=== PATIENT | female | born 1985 | race Caucasian/White ===

== ENCOUNTER → 2021-11-06 15:49 | Outpatient (CLI) | payer OTHER, SELFPAY ==
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
== END ==
PROVIDERS: PCP Registered Nurse Diabetes Educator; Referring Provider Registered Nurse Diabetes Educator; Visit Provider Registered Nurse Diabetes Educator
DX: M54.2 Cervicalgia (principal)
CPT/HCPCS: 72040

== ENCOUNTER 2021-12-12 13:45 | Outpatient (RCR) | payer OTHER, SELFPAY ==
--- NOTE | 2021-11-21 18:45 | PT.OIE ---
Current Diagnoses Cervicalgia (11/21/21) Other specified disorders of bone, shoulder (11/21/21) Dizziness and giddiness (11/21/21) Past Medical History (Last Updated 11/18/21 @ 22:46 by Sowmya Boyle) Abnormal Pap smear of cervix (~2018) Genital HSV (~2017) Tendonitis (~2020) Tinnitus Past Surgical History (Last Updated 11/18/21 @ 22:46 by Sowmya Boyle) Anesthesia Lipoma of back (~06/04/18) Visit Care Team Role Provider Type BRENDAN Montalvo Family Provider Advanced Foamite Mixer Primary Care Provider Specialty: Medical Address: [address] [place] [address], [facility] Email: [email or web address] BRENDAN Giles Attending Provider Advanced Foamite Mixer Referring Provider Specialty: Family Practice Address: [address] [place] [address], [facility] Email: [email or web address] Physical Therapy Initial Evaluation PT-OP-A Visit Information Start: 11/18/21 18:11 Freq: Status: Active Protocol: Document 11/21/21 08:59 LRN (Rec: 11/21/21 09:56 LRN [id number]) Out-Patient Physical Therapy Visit Information Visit Information Visit Type Initial Evaluation Visit Note , $50 copay Visit Start Time 09:00 Visit Stop Time 09:55 Total Visit Minutes 55 Visit Number 1 Evaluation Information Evaluation Date 11/21/21 Precautions Precautions Hx or neck/back pain PT-OP-B Current Condition Start: 11/18/21 18:11 Freq: Status: Active Protocol: Document 11/21/21 08:59 LRN (Rec: 11/21/21 09:56 LRN [id number]) Current Condition History of Current Condition Onset Date Current Complaints Neck and shoulder discomfort. History of Current Condition Pt states she was referred for neck/shoulder pain that started after attending a concert in [place], but had slight neck pain previously. She currently has tightness behind the head and soreness in the neck and upper shoulders. She has had wrist tendonitis therapy ([facility] in [facility] ~02/12-06/15) previously, but she has ex's for that. Had went to a [employer] concert and was bashing her head around so for the first day or two when she stood up she would get dizzy and lightheaded, but that has cleared up. Neck/shoulder pain is essentially gone, just sore. Prior Treatments and Tests Medications for nighttime med for ms spasms and pain reliever. PT reports X-ray taken at , results unknown. X-rays reveal no acute findings or degenerative changes. Future Testing and Treatments Planned None Treatment Goals Patient/Caregiver Goals Pt goal is to get assessment self care program. Pain 1/10 in 4 weeks the night and morning after a strenuous day at work. Able to bend over and clean at work or weed whack carrying device at previous level of function. 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 Baseline Function- Other Currently can take care of self, but for first 1-2 days after the concert needed help with daily activities. Slight neck pain Current Functional Impairments (Reported) Functional Limitations- ADL's A lot lifting or bending. Functional Limitations- Work/School Back at work. Doing a lot of lifting or bending causes her more soreness, but not excruciating pain. 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 Therapy/Recovery PT-OP-C Subjective Start: 11/18/21 18:11 Freq: Status: Active Protocol: Document 11/21/21 08:59 LRN (Rec: 11/21/21 09:56 LRN [id number]) Patient Questionnaires Neck Disability Index NDI Score 7 Neck Disability Index Impairment 1 to 19% Impaired (Score 1-9) Quick Dash- Upper Extremity Quick Dash UE Score 29.54 Quick Dash UE Impairment 20 to 39% Impaired (Score 20- 39) OP-PT Pain Assessment Pain Assessment Grid Paper Pain Assessment Grid Completed Yes Location Neck Pain Location Details Paraspinals, UT, and above occiput Intensity 4 Scale Used Numeric (0 - 10) Description Aching,Shooting Description- Other Sharp if bending or moving the wrong way Pain Duration Intermittent sharp, Constant soreness Pain Aggravating Factors Activity Other Pain Aggravating Factors Lifting, bending Pain Alleviating Factors None PT-OP-D Balance Start: 11/18/21 18:11 Freq: Status: Active Protocol: Document 11/21/21 08:59 LRN (Rec: 11/21/21 09:56 LRN [id number]) OP-PT Balance Assessment Sitting Balance Static Sitting Balance Ability Normal Dynamic Sitting Balance Ability Normal Standing Balance Static Standing Balance Ability Normal Dynamic Standing Balance Ability Normal Heath Fall Scale Copyright Permission PT-OP-G Mobility & Gait Start: 11/18/21 18:11 Freq: Status: Active Protocol: Document 11/21/21 08:59 LRN (Rec: 11/21/21 09:56 LRN [id number]) OP Gait Assessment Comments Gait Comments Normal PT-OP-J Posture/Palpation/Skin Start: 11/18/21 18:11 Freq: Status: Active Protocol: Document 11/21/21 08:59 LRN (Rec: 11/21/21 09:56 LRN [id number]) Posture Evaluation Position Standing Head/C-Spine Posture Side Bent Left,Forward Head T-Spine Posture Increased Kyphosis L-Spine Posture Increased Lordosis Shoulder Posture (R) Elevated Hip Posture (L) Externally Rotated,(R) Externally Rotated Palpation Assessment Location Shoulder Palpation Location Intrascapular muscles Palpation Findings Soft Tissue Tightness,Muscle Guarding,Tenderness Palpation Details Upwardly rotated R scapula Ms tension of intrascapular muscles and weakness of the L intrascapular muscles. Neck Palpation Location R Upper trapezious Palpation Findings Soft Tissue Tightness, Tenderness Palpation Details R UT tight, but head tilted left L suboccipital region tight. PT-OP-K Range of Motion Start: 11/18/21 18:11 Freq: Status: Active Protocol: Document 11/21/21 08:59 LRN (Rec: 11/21/21 09:56 LRN [id number]) Cervical Spine Range of Motion Cervical Spine Active Degrees Testing Position Sitting Flexion 48 Extension 45 Rotation Left 30 Rotation Right 63 Lateral Flexion Left 30 Lateral Flexion Right 35 ROM Limitations Soft Tissue Tightness,Pain Comments Use of bubble inclinometer. Pt reports soreness vs pain restricting movement. L rot limited by L UT & L [place] tightness R rot tightness at LO intrascapular ms Shoulder Goniometric Range of Motion Shoulder Right Passive Shoulder ROM WFL Yes Testing Position Sitting Flexion 180 Abduction 177 External Rotation at 0 degrees Abduction 85 Internal Rotation Behind Back (text) T6 Comments IR limited due to R wrist pain . Left Active Shoulder ROM WFL Yes Testing Position Sitting Flexion 180 External Rotation at 0 degrees Abduction 85 Internal Rotation Behind Back (text) T5 PT-OP-L Special Tests Start: 11/18/21 18:11 Freq: Status: Active Protocol: Document 11/21/21 08:59 LRN (Rec: 11/21/21 09:56 LR [id number]) Special Tests Cervical Spine Special Tests Upper Limb Tension Test Test Results negative Vertebral Artery Test Results Neg bilaterally Comments Causes sharp pain R neck with R rot; tension of ms with L rot Spurling's Test Test Results + left Comments pain on left neck testing L SB , pressure on left with testing R SB. Traction Test Results Positive Comments decrease soreness Foraminal Compression Test Results negative Comments decrease soreness PT-OP-M Strength Start: 11/23/21 09:08 Freq: Status: Active Protocol: Document 11/21/21 08:59 LRN (Rec: 11/23/21 09:10 LRN [id number]) Cervical Spine Strength Cervical Spine Manual Muscle Testing Testing Position Sitting Rotation Right 4 Good Comments Generally 5/5 except as noted above. Shoulder Strength Shoulder Manual Muscle Testing Right Comments Generally 5/5 Left Comments Generally 5/5 PT-OP-Q Treatments Start: 11/18/21 18:11 Freq: Status: Active Protocol: Document 11/21/21 08:59 LRN (Rec: 11/21/21 09:56 LR [id number]) Therapeutic Exercises Supine Exercises C. PROM Supine Exercise Name C. PROM rot Side bilateral Reps/Minutes 3' Sitting Exercises Shoulder rolls Sitting Exercise Name Shoulder rolls with emphasis on shoulder depression and forward roll. Side bilateral Reps/Minutes 2' C. AROM Sitting Exercise Name C. AROM stretch: rotation Side bilateral Reps/Minutes 3' Self-Care/Home Management Treatment Education Other Education Discussed results of evaluation, goals, and plan of care (POC). Pt agreeable to goals and POC. Activities Self-Care/Home Management Activities HEP: Shoulder rolls, C. rot AROM stretch PT-OP-T Assessment and Plan Start: 11/18/21 18:11 Freq: Status: Active Protocol: Document 11/21/21 08:59 LRN (Rec: 11/21/21 09:56 LR [id number]) Physical Therapy Assessment Rehab Potential Rehabilitation Potential Good Evaluation Complexity Number of Personal Factors/Comorbidities 1-2 Number of Body Systems Impaired 4 or More Clinical Presentation at Evaluation Evolving Impairments Impairments Activity Tolerance,Pain,ROM, Soft Tissue Mobility,Strength Goals Three Impairment Decreased function due to pain Short Term Goal (STG) Pt will be educated in proper body mechanics and intermittent neck stretches during strenuous activities. STG Duration 12/06/09 Longterm Goal (LTG) Able to bend over and clean at work, or able to carry weed whack device at previous level of function. LTG Duration 01/17/22 Two Impairment Neck/mariann shoulder pain rated 3 -4/10 Short Term Goal (STG) Decrease pain to 2/10 STG Duration 01/17/22 Longterm Goal (LTG) Pain 1/10 in the night and morning after a strenuous day at work. LTG Duration 12/20/21 One Impairment Lacks appropriate self care HEP Short Term Goal (STG) Pt educated in self care use of modalities for pain relief (MH/Cryotherapy) STG Duration 11/29/09 Hearing Therapy Teacher Goal (LTG) Pt independent with a self care HEP for the neck/ shoulders. LTG Duration 02/19/22 Assessment Summary Assessment Pt presents mechanical dyfunction of the lower cervical spine, possible neural involvement as noted with +cervical traction test; and excessive mobility at the OA joint. She has increased ms tension of the R UT and intrascapular muscles and weakness of the L intrascapular muscles. The pt also demonstrates postural changes in the neck and shoulders (most notable is foward head and L forward rounded shoulder). The pt no longer is having symptoms of dizziness; therefore focus of therapy will be on improving cervical mobility and stabilization to decrease pain and return pt to prior level of function. Physical Therapy Plan Frequency and Duration Frequency of Treatment 2x/Week Plan of Care Start Date 11/21/21 Plan of Care End Date 02/19/22 Therapeutic Interventions Therapeutic Interventions Home Exercise Program,Joint Mobilizations,Manual Therapy, Neuromuscular Re-education, Patient/Caregiver Education, Self-Care/Home Management,Soft Tissue Mobilization,Taping, Therapeutic Activities, Therapeutic Exercises Modalities Cold Pack/Ice Massage,Electric Stimulation,Hot Packs, Ultrasound Next Visit Focus/Plan Next Note Type Treatment Note Next Visit Plan Pt choosing to focus on self care HEP. Independent with initial neck/shoulder ROM and strengthening 2x/1 wk, then follow up visits 1x/week until goals met. Educate pt in self care use of modalities & proper body mechanics w/Cervical shoulder ex (stretch, active ROM) during strenuous activities at work. HEP: Cervical & scapular stabilization, core strengthening. Manual: STM UT, C/S, JMT C/S & C. ROM with
--- NOTE | 2021-11-21 18:45 | PT.OPPOC ---
Physical, Occupational & Speech Therapy At [facility] Current Diagnoses Cervicalgia (11/21/21) Other specified disorders of bone, shoulder (11/21/21) Dizziness and giddiness (11/21/21) Visit Care Team Role Provider Type BRENDAN Montalvo Family Provider Advanced Carton Liner Primary Care Provider Specialty: Medical Address: [address] [place] [address], [id number] Email: [email or web address] BRENDAN Giles Attending Provider Advanced Carton Liner Referring Provider Specialty: [facility] Practice Address: [address] [place] [address], [id number] Email: [email or web address] Plan Of Care PT-OP-T Assessment and Plan Start: 11/18/21 18:11 Freq: Status: Active Protocol: Document 11/21/21 08:59 LRN (Rec: 11/21/21 09:56 LRN [id number]) Physical Therapy Assessment Rehab Potential Rehabilitation Potential Good Evaluation Complexity Number of Personal Factors/Comorbidities 1-2 Number of Body Systems Impaired 4 or More Clinical Presentation at Evaluation Evolving Impairments Impairments Activity Tolerance,Pain,ROM, Soft Tissue Mobility,Strength Goals Three Impairment Decreased function due to pain Short Term Goal (STG) Pt will be educated in proper body mechanics and intermittent neck stretches during strenuous activities. STG Duration 12/06/09 Service Dispatcher Goal (LTG) Able to bend over and clean at work, or able to carry weed whack device at previous level of function. LTG Duration 01/17/22 Two Impairment Neck/mariann shoulder pain rated 3 -4/10 Short Term Goal (STG) Decrease pain to 2/10 STG Duration 01/17/22 Correction Goal (LTG) Pain 1/10 in the night and morning after a strenuous day at work. LTG Duration 12/20/21 One Impairment Lacks appropriate self care HEP Short Term Goal (STG) Pt educated in self care use of modalities for pain relief (MH/Cryotherapy) STG Duration 11/29/09 Service Dispatcher Goal (LTG) Pt independent with a self care HEP for the neck/ shoulders. LTG Duration 02/19/22 Assessment Summary Assessment Pt presents mechanical dyfunction of the lower cervical spine, possible neural involvement as noted with +cervical traction test; and excessive mobility at the OA joint. She has increased ms tension of the R UT and intrascapular muscles and weakness of the L intrascapular muscles. The pt also demonstrates postural changes in the neck and shoulders (most notable is foward head and L forward rounded shoulder). The pt no longer is having symptoms of dizziness; therefore focus of therapy will be on improving cervical mobility and stabilization to decrease pain and return pt to prior level of function. Physical Therapy Plan Frequency and Duration Frequency of Treatment 2x/Week Plan of Care Start Date 11/21/21 Plan of Care End Date 02/19/22 Therapeutic Interventions Therapeutic Interventions Home Exercise Program,Joint Mobilizations,Manual Therapy, Neuromuscular Re-education, Patient/Caregiver Education, Self-Care/Home Management,Soft Tissue Mobilization,Taping, Therapeutic Activities, Therapeutic Exercises Modalities Cold Pack/Ice Massage,Electric Stimulation,Hot Packs, Ultrasound Next Visit Focus/Plan Next Note Type Treatment Note Next Visit Plan Pt choosing to focus on self care HEP. Independent with initial neck/shoulder ROM and strengthening 2x/1 wk, then follow up visits 1x/week until goals met. Educate pt in self care use of modalities & proper body mechanics w/Cervical shoulder ex (stretch, active ROM) during strenuous activities at work. HEP: Cervical & scapular stabilization, core strengthening. Manual: STM UT, C/S, JMT C/S & C. ROM with Plan of Care Dates Plan of Care Start Date 11/21/21 Plan of Care End Date 02/19/22 Electronically Signed by: Mary Albarran, PT 11/23/21 0914 If you are in agreement with this Plan of Care, please return a signed and dated copy. I have reviewed this Plan of Care and certify that the skilled therapy services above are required to meet the patient?s needs. Physician Signature Date Printed Name and Credentials Clinical Instructor Signature Printed Name and Credentials
--- NOTE | 2021-11-28 10:59 | PT.OTN ---
Current Diagnoses Cervicalgia (11/28/21) Other specified disorders of bone, shoulder (11/28/21) Dizziness and giddiness (11/28/21) Physical Therapy Treatment Note PT-OP-A Visit Information Start: 11/18/21 18:11 Freq: Status: Active Protocol: Document 11/28/21 09:05 LRN (Rec: 11/28/21 10:35 LRN [id number]) Out-Patient Physical Therapy Visit Information Visit Information Visit Type Treatment Note Visit Note , $50 copay Visit Start Time 09:05 Visit Stop Time 09:45 Total Visit Minutes 41 Visit Number 2 Evaluation Information Evaluation Date 11/21/21 Precautions Precautions Hx or neck/back pain PT-OP-B Current Condition Start: 11/18/21 18:11 Freq: Status: Active Protocol: Document 11/21/21 08:59 LRN (Rec: 11/21/21 09:56 LRN [id number]) Current Condition History of Current Condition Onset Date Current Complaints Neck and shoulder discomfort. History of Current Condition Pt states she was referred for neck/shoulder pain that started after attending a concert in [place], but had slight neck pain previously. She currently has tightness behind the head and soreness in the neck and upper shoulders. She has had wrist tendonitis therapy ([facility] in [place], ~02/12-06/15) previously, but she has ex's for that. Had went to a [employer] concert and was bashing her head around so for the first day or two when she stood up she would get dizzy and lightheaded, but that has cleared up. Neck/shoulder pain is essentially gone, just sore. Prior Treatments and Tests Medications for nighttime med for ms spasms and pain reliever. PT reports X-ray taken at , results unknown. X-rays reveal no acute findings or degenerative changes. Future Testing and Treatments Planned None Treatment Goals Patient/Caregiver Goals Pt goal is to get assessment self care program. Pain 1/10 in 4 weeks the night and morning after a strenuous day at work. Able to bend over and clean at work or weed whack carrying device at previous level of function. 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 Baseline Function- Other Currently can take care of self, but for first 1-2 days after the concert needed help with daily activities. Slight neck pain Current Functional Impairments (Reported) Functional Limitations- ADL's A lot lifting or bending. Functional Limitations- Work/School Back at work. Doing a lot of lifting or bending causes her more soreness, but not excruciating pain. 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 Therapy/Recovery PT-OP-C Subjective Start: 11/18/21 18:11 Freq: Status: Active Protocol: Document 11/28/21 09:05 LRN (Rec: 11/28/21 10:35 LRN [id number]) OP-PT Subjective Patient Comments Patient Comments NO excuciting pain anymore, still sore, limited neck mobility. PT-OP-D Balance Start: 11/18/21 18:11 Freq: Status: Active Protocol: Document 11/21/21 08:59 LRN (Rec: 11/21/21 09:56 LRN [id number]) OP-PT Balance Assessment Sitting Balance Static Sitting Balance Ability Normal Dynamic Sitting Balance Ability Normal Standing Balance Static Standing Balance Ability Normal Dynamic Standing Balance Ability Normal Heath Fall Scale Copyright Permission PT-OP-G Mobility & Gait Start: 11/18/21 18:11 Freq: Status: Active Protocol: Document 11/21/21 08:59 LRN (Rec: 11/21/21 09:56 LRN [id number]) OP Gait Assessment Comments Gait Comments Normal PT-OP-J Posture/Palpation/Skin Start: 11/18/21 18:11 Freq: Status: Active Protocol: Document 11/21/21 08:59 LRN (Rec: 11/21/21 09:56 LRN [id number]) Posture Evaluation Position Standing Head/C-Spine Posture Side Bent Left,Forward Head T-Spine Posture Increased Kyphosis L-Spine Posture Increased Lordosis Shoulder Posture (R) Elevated Hip Posture (L) Externally Rotated,(R) Externally Rotated Palpation Assessment Location Shoulder Palpation Location Intrascapular muscles Palpation Findings Soft Tissue Tightness,Muscle Guarding,Tenderness Palpation Details Upwardly rotated R scapula Ms tension of intrascapular muscles and weakness of the L intrascapular muscles. Neck Palpation Location R Upper trapezious Palpation Findings Soft Tissue Tightness, Tenderness Palpation Details R UT tight, but head tilted left L suboccipital region tight. PT-OP-K Range of Motion Start: 11/18/21 18:11 Freq: Status: Active Protocol: Document 11/21/21 08:59 LRN (Rec: 11/21/21 09:56 LRN [id number]) Cervical Spine Range of Motion Cervical Spine Active Degrees Testing Position Sitting Flexion 48 Extension 45 Rotation Left 30 Rotation Right 63 Lateral Flexion Left 30 Lateral Flexion Right 35 ROM Limitations Soft Tissue Tightness,Pain Comments Use of bubble inclinometer. Pt reports soreness vs pain restricting movement. L rot limited by L UT & L Scalene tightness R rot tightness at LO intrascapular ms Shoulder Goniometric Range of Motion Shoulder Right Passive Shoulder ROM WFL Yes Testing Position Sitting Flexion 180 Abduction 177 External Rotation at 0 degrees Abduction 85 Internal Rotation Behind Back (text) T6 Comments IR limited due to R wrist pain . Left Active Shoulder ROM WFL Yes Testing Position Sitting Flexion 180 External Rotation at 0 degrees Abduction 85 Internal Rotation Behind Back (text) T5 PT-OP-L Special Tests Start: 11/18/21 18:11 Freq: Status: Active Protocol: Document 11/21/21 08:59 LRN (Rec: 11/21/21 09:56 LRN [id number]) Special Tests Cervical Spine Special Tests Upper Limb Tension Test Test Results negative Vertebral Artery Test Results Neg bilaterally Comments Causes sharp pain R neck with R rot; tension of ms with L rot Spurling's Test Test Results + left Comments pain on left neck testing L SB , pressure on left with testing R SB. Traction Test Results Positive Comments decrease soreness Foraminal Compression Test Results negative Comments decrease soreness PT-OP-M Strength Start: 11/23/21 09:08 Freq: Status: Active Protocol: Document 11/21/21 08:59 LRN (Rec: 11/23/21 09:10 LRN [id number]) Cervical Spine Strength Cervical Spine Manual Muscle Testing Testing Position Sitting Rotation Right 4 Good Comments Generally 5/5 except as noted above. Shoulder Strength Shoulder Manual Muscle Testing Right Comments Generally 5/5 Left Comments Generally 5/5 PT-OP-Q Treatments Start: 11/18/21 18:11 Freq: Status: Active Protocol: Document 11/28/21 09:05 LRN (Rec: 11/28/21 10:35 LRN [id number]) Therapeutic Exercises Supine Exercises Horiz AB/AD arms Supine Exercise Name Horiz AB/AD Side bilateral Reps/Minutes 15x Comments Extra time to for slow and controlled motions with cuing given. Alternating arm lifts Supine Exercise Name Alternating arm lifts Side bilateral Reps/Minutes 15x Comments Extra time to for slow and controlled motions with cuing given. Neck Elongation Supine Exercise Name Turtle stretch Reps/Minutes 10 SH x 10 C. PROM Supine Exercise Name C. PROM rot Side bilateral Sitting Exercises C. Isometrics Sitting Exercise Name Vonnie c. flex, ext, SB. Reps/Minutes 10SH x 5 each, alternating side to side Comments Cuing needed for neutral spine /head positioning with ex. C. AROM Sitting Exercise Name C. AROM stretch: rotation Side bilateral Reps/Minutes 3' Manual Therapy Treatment Soft Tissue Mobilization NEck Body Location Posterior neck, anterior scalenes. Mobilization Type Cross-Friction,Strumming, Sustained Pressure Intensity/Depth Moderate Body Position Prone & supine Joint Mobilizations C2 Joint Correcting a L rot Body Position Prone Comments MFR and balancing technique Self-Care/Home Management Treatment Education Patient Education Home Exercise Program Other Education Brief education of head/neck posture with body mechanics. Recommended pt switch arms with scrubbing of toilets and keeping chin tucked. Activities Self-Care/Home Management Activities Issue & reviewed HEP: C. Isometrics (flex, ext, SB). Pt to start with 10SH x 5(2 sets) alternating, and working up to 10SH x 10 each side at a time. PT-OP-T Assessment and Plan Start: 11/18/21 18:11 Freq: Status: Active Protocol: Document 11/28/21 09:05 LRN (Rec: 11/28/21 10:35 LRN [id number]) Physical Therapy Assessment Goals Three Impairment Decreased function due to pain Short Term Goal (STG) Pt will be educated in proper body mechanics and intermittent neck stretches during strenuous activities. STG Duration 12/06/09 Nursing Home Goal (LTG) Able to bend over and clean at work, or able to carry weed whack device at previous level of function. LTG Duration 01/17/22 Two Impairment Neck/mariann shoulder pain rated 3 -4/10 Short Term Goal (STG) Decrease pain to 2/10 STG Duration 01/17/22 Nursing Home Goal (LTG) Pain 1/10 in the night and morning after a strenuous day at work. LTG Duration 12/20/21 One Impairment Lacks appropriate self care HEP Short Term Goal (STG) Pt educated in self care use of modalities for pain relief (MH/Cryotherapy) STG Duration 11/29/09 Nursing Home Goal (LTG) Pt independent with a self care HEP for the neck/ shoulders. (11/28/21: HEP: C. vonnie for flex, ext, SB) LTG Duration 02/19/22 Assessment Summary Assessment Pt C2, C3 appears R rotated, but improved with gentle manual MFR mob. Pt C. AROM is almost normal with discomfort on L rot and L SB, probably due to joint dysfunction. She does have tightness of the R UT. General neck/shoulder strengthening needed. She tolerated UE AROM well; therefore expect she will be able to tolerate progression of strengthening well. Physical Therapy Plan Frequency and Duration Frequency of Treatment 2x/Week Plan of Care Start Date 11/21/21 Plan of Care End Date 02/19/22 Next Visit Focus/Plan Next Note Type Treatment Note Next Visit Plan Progress C. stab strengthening . Improve C/S joint mobility with movement. Educate pt in self care use of modalities (STG#1) & proper body mechanics (STG#3) w/ Cervical shoulder ex (stretch, active ROM) during strenuous activities at work. HEP: Cervical & scapular stabilization, core strengthening. Manual: STM UT, C/S, JMT C/S & C. ROM with MH POC: Pt choosing to focus on self care HEP. P to be independent with initial neck/ shoulder ROM and strengthening 2x/1 wk, then follow up visits 1x/week until goals met .
--- NOTE | 2021-12-03 12:57 | PT.OTN ---
Current Diagnoses Cervicalgia (12/03/21) Other specified disorders of bone, shoulder (12/03/21) Dizziness and giddiness (12/03/21) Physical Therapy Treatment Note PT-OP-A Visit Information Start: 11/18/21 18:11 Freq: Status: Active Protocol: Document 12/03/21 10:29 NBM (Rec: 12/03/21 12:57 NBM [id number]) Out-Patient Physical Therapy Visit Information Visit Information Visit Type Treatment Note Visit Note , $50 copay Visit Start Time 10:35 Visit Stop Time 11:24 Total Visit Minutes 49 Visit Number 3 Number of [employer]AB[employer] INSPECTOR Visits 1 Precautions Precautions Hx or neck/back pain PT-OP-B Current Condition Start: 11/18/21 18:11 Freq: Status: Active Protocol: Document 11/21/21 08:59 LRN (Rec: 11/21/21 09:56 LRN [id number]) Current Condition History of Current Condition Onset Date Current Complaints Neck and shoulder discomfort. History of Current Condition Pt states she was referred for neck/shoulder pain that started after attending a concert in [place], but had slight neck pain previously. She currently has tightness behind the head and soreness in the neck and upper shoulders. She has had wrist tendonitis therapy ([facility] in [place], ~02/12-06/15) previously, but she has ex's for that. Had went to a [employer] concert and was bashing her head around so for the first day or two when she stood up she would get dizzy and lightheaded, but that has cleared up. Neck/shoulder pain is essentially gone, just sore. Prior Treatments and Tests Medications for nighttime med for ms spasms and pain reliever. PT reports X-ray taken at , results unknown. X-rays reveal no acute findings or degenerative changes. Future Testing and Treatments Planned None Treatment Goals Patient/Caregiver Goals Pt goal is to get assessment self care program. Pain 1/10 in 4 weeks the night and morning after a strenuous day at work. Able to bend over and clean at work or weed whack carrying device at previous level of function. 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 Slight neck pain Current Functional Impairments (Reported) Functional Limitations- ADL's A lot lifting or bending. Functional Limitations- Work/School Back at work. Doing a lot of lifting or bending causes her more soreness, but not excruciating pain. 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 Therapy/Recovery PT-OP-C Subjective Start: 11/18/21 18:11 Freq: Status: Active Protocol: Document 12/03/21 10:29 NBM (Rec: 12/03/21 12:57 NBM [id number]) OP-PT Subjective Patient Comments Patient Comments Pt reports she has most of her mobility back but neck and back are sore with movement. Went paddle boarding two hours without pain, had tolerable muscle soreness aftwerwards. PT-OP-D Balance Start: 11/18/21 18:11 Freq: Status: Active Protocol: Document 11/21/21 08:59 LRN (Rec: 11/21/21 09:56 LRN [id number]) OP-PT Balance Assessment Sitting Balance Static Sitting Balance Ability Normal Dynamic Sitting Balance Ability Normal Standing Balance Static Standing Balance Ability Normal Dynamic Standing Balance Ability Normal Heath Fall Scale Copyright Permission PT-OP-G Mobility & Gait Start: 11/18/21 18:11 Freq: Status: Active Protocol: Document 11/21/21 08:59 LRN (Rec: 11/21/21 09:56 LRN [id number]) OP Gait Assessment Comments Gait Comments Normal PT-OP-J Posture/Palpation/Skin Start: 11/18/21 18:11 Freq: Status: Active Protocol: Document 11/21/21 08:59 LRN (Rec: 11/21/21 09:56 LRN [id number]) Posture Evaluation Position Standing Head/C-Spine Posture Side Bent Left,Forward Head T-Spine Posture Increased Kyphosis L-Spine Posture Increased Lordosis Shoulder Posture (R) Elevated Hip Posture (L) Externally Rotated,(R) Externally Rotated Palpation Assessment Location Shoulder Palpation Location Intrascapular muscles Palpation Findings Soft Tissue Tightness,Muscle Guarding,Tenderness Palpation Details Upwardly rotated R scapula Ms tension of intrascapular muscles and weakness of the L intrascapular muscles. Neck Palpation Location R Upper trapezious Palpation Findings Soft Tissue Tightness, Tenderness Palpation Details R UT tight, but head tilted left L suboccipital region tight. PT-OP-K Range of Motion Start: 11/18/21 18:11 Freq: Status: Active Protocol: Document 11/21/21 08:59 LRN (Rec: 11/21/21 09:56 LRN [id number]) Cervical Spine Range of Motion Cervical Spine Active Degrees Testing Position Sitting Flexion 48 Extension 45 Rotation Left 30 Rotation Right 63 Lateral Flexion Left 30 Lateral Flexion Right 35 ROM Limitations Soft Tissue Tightness,Pain Comments Use of bubble inclinometer. Pt reports soreness vs pain restricting movement. L rot limited by L UT & L Scalene tightness R rot tightness at LO intrascapular ms Shoulder Goniometric Range of Motion Shoulder Right Passive Shoulder ROM WFL Yes Testing Position Sitting Flexion 180 Abduction 177 External Rotation at 0 degrees Abduction 85 Internal Rotation Behind Back (text) T6 Comments IR limited due to R wrist pain . Left Active Shoulder ROM WFL Yes Testing Position Sitting Flexion 180 External Rotation at 0 degrees Abduction 85 Internal Rotation Behind Back (text) T5 PT-OP-L Special Tests Start: 11/18/21 18:11 Freq: Status: Active Protocol: Document 11/21/21 08:59 LRN (Rec: 11/21/21 09:56 LRN [id number]) Special Tests Cervical Spine Special Tests Upper Limb Tension Test Test Results negative Vertebral Artery Test Results Neg bilaterally Comments Causes sharp pain R neck with R rot; tension of ms with L rot Spurling's Test Test Results + left Comments pain on left neck testing L SB , pressure on left with testing R SB. Traction Test Results Positive Comments decrease soreness Foraminal Compression Test Results negative Comments decrease soreness PT-OP-M Strength Start: 11/23/21 09:08 Freq: Status: Active Protocol: Document 11/21/21 08:59 LRN (Rec: 11/23/21 09:10 LRN [id number]) Cervical Spine Strength Cervical Spine Manual Muscle Testing Testing Position Sitting Rotation Right 4 Good Comments Generally 5/5 except as noted above. Shoulder Strength Shoulder Manual Muscle Testing Right Comments Generally 5/5 Left Comments Generally 5/5 PT-OP-Q Treatments Start: 11/18/21 18:11 Freq: Status: Active Protocol: Document 12/03/21 10:29 NBM (Rec: 12/03/21 12:57 NBM [id number]) Therapeutic Exercises Supine Exercises Alternating arm lifts Supine Exercise Name Alternating arm lifts Side bilateral Reps/Minutes 15x Comments Extra time to for slow and controlled motions with cuing given. Neck Elongation Supine Exercise Name Turtle stretch Reps/Minutes 5 Sitting Exercises Scapular Squeeze Sitting Exercise Name Added to HEP: 1. Scap retraction. 2. Rows 3. Shoulder extension Resistance Lvl 1 TB Reps/Minutes 1 x 10 ea Comments Pt struggled w/rhomboid recruitment - improved post shoulder roll/chin tuck Levator Scap. Stretch Sitting Exercise Name Added to HEP HO declined Reps/Minutes 2 x 30 Comments hold mat table, relief reported Upper Trapezius Stretch Sitting Exercise Name Added to HEP - HO declined Reps/Minutes 2 x 30 Comments hold mat table, relief reported C. Isometrics Sitting Exercise Name Vonnie c. flex, ext, SB. Reps/Minutes 10SH x 5 each, alternating side to side Comments Cuing needed for neutral spine /head positioning with ex. Shoulder rolls Sitting Exercise Name Shoulder rolls with emphasis on shoulder depression and forward roll. Side bilateral Reps/Minutes 2' Manual Therapy Treatment Soft Tissue Mobilization NEck Body Location Posterior neck, L anterior scalenes, Levator Scap, Upper Trap Mobilization Type Cross-Friction,Strumming, Sustained Pressure Intensity/Depth Moderate Body Position Supine Self-Care/Home Management Treatment Education Patient Education Home Exercise Program Other Education Discussed head/neck/shoulder posture with body mechanics. Added Seated scap retraction to Row and Shoulder extension to HEP - Lvl 1 TB, loop, and HO given. Seated UT and LS stretches added to HEP - HO declined. (STG #1 & #3) PT-OP-T Assessment and Plan Start: 11/18/21 18:11 Freq: Status: Active Protocol: Document 12/03/21 10:29 [facility] (Rec: 12/03/21 12:57 [facility] [id number]) Physical Therapy Assessment Goals Three Impairment Decreased function due to pain Short Term Goal (STG) Pt will be educated in proper body mechanics and intermittent neck stretches during strenuous activities. STG Duration 12/06/09 Loom [facility]ter Goal (LTG) Able to bend over and clean at work, or able to carry weed whack device at previous level of function. LTG Duration 01/17/22 Two Impairment Neck/mariann shoulder pain rated 3 -4/10 Short Term Goal (STG) Decrease pain to 2/10 STG Duration 01/17/22 Loom Setter Goal (LTG) Pain 1/10 in the night and morning after a strenuous day at work. LTG Duration 12/20/21 One Impairment Lacks appropriate self care HEP Short Term Goal (STG) Pt educated in self care use of modalities for pain relief (MH/Cryotherapy) STG Duration 11/29/09 Loom Setter Goal (LTG) Pt independent with a self care HEP for the neck/ shoulders. (11/28/21: HEP: C. vonnie for flex, ext, SB) LTG Duration 02/19/22 Assessment Summary Assessment Today pt's C2, C3 appear L rotated (R rotated at last visit) but improved with STM. Pain relief was reported with STM. Pt requires verbal/ tactile cues for rhomboid recruitment with scapular retraction - overactivation of Upper Trapezius noted. Pt's self-awareness and ability to recruit rhomboids improved after shoulder rolls and w/ repition and cues for chin tuck. Seated scap retraction to Row and shoulder extension added to HEP - Lvl 1 TB, loop, and HO given. Seated UT and LS stretches added to HEP - HO declined. Pt will benefit from continued skilled therapeutic intervention. Ice declined today. Physical Therapy Plan Next Visit Focus/Plan Next Note Type Treatment Note Next Visit Plan Progress C. stab strengthening . Improve C/S joint mobility with movement. Educate pt in self care use of modalities (STG#1) & proper body mechanics (STG#3) w/ Cervical shoulder ex (stretch, active ROM) during strenuous activities at work. HEP: Cervical & scapular stabilization, core strengthening. Manual: STM UT, C/S, JMT C/S & C. ROM with MH POC: Pt choosing to focus on self care HEP. P to be independent with initial neck/ shoulder ROM and strengthening 2x/1 wk, then follow up visits 1x/week until goals met .
--- NOTE | 2021-12-05 13:05 | PT.OTN ---
Current Diagnoses Cervicalgia (12/05/21) Other specified disorders of bone, shoulder (12/05/21) Dizziness and giddiness (12/05/21) Physical Therapy Treatment Note PT-OP-A Visit Information Start: 11/18/21 18:11 Freq: Status: Active Protocol: Document 12/05/21 12:15 SP (Rec: 12/05/21 13:07 SP [id number]) Out-Patient Physical Therapy Visit Information Visit Information Visit Type Treatment Note Visit Note , $50 copay Visit Start Time 12:15 Visit Stop Time 13:05 Total Visit Minutes 55 Visit Number 4 Number of STARCH MANGLE TENDER Visits 2 Evaluation Information Evaluation Date 11/21/21 Precautions Precautions Hx or neck/back pain PT-OP-B Current Condition Start: 11/18/21 18:11 Freq: Status: Active Protocol: Document 11/21/21 08:59 LRN (Rec: 11/21/21 09:56 LRN [id number]) Current Condition History of Current Condition Onset Date Current Complaints Neck and shoulder discomfort. History of Current Condition Pt states she was referred for neck/shoulder pain that started after attending a concert in [place], but had slight neck pain previously. She currently has tightness behind the head and soreness in the neck and upper shoulders. She has had wrist tendonitis therapy ([facility] in [place], ~02/12-06/15) previously, but she has ex's for that. Had went to a [employer] concert and was bashing her head around so for the first day or two when she stood up she would get dizzy and lightheaded, but that has cleared up. Neck/shoulder pain is essentially gone, just sore. Prior Treatments and Tests Medications for nighttime med for ms spasms and pain reliever. PT reports X-ray taken at , results unknown. X-rays reveal no acute findings or degenerative changes. Future Testing and Treatments Planned None Treatment Goals Patient/Caregiver Goals Pt goal is to get assessment self care program. Pain 1/10 in 4 weeks the night and morning after a strenuous day at work. Able to bend over and clean at work or weed whack carrying device at previous level of function. 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 Baseline Function- Other Currently can take care of self, but for first 1-2 days after the concert needed help with daily activities. Slight neck pain Current Functional Impairments (Reported) Functional Limitations- ADL's A lot lifting or bending. Functional Limitations- Work/School Back at work. Doing a lot of lifting or bending causes her more soreness, but not excruciating pain. 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 Therapy/Recovery PT-OP-C Subjective Start: 11/18/21 18:11 Freq: Status: Active Protocol: Document 12/05/21 12:15 SP (Rec: 12/05/21 13:07 SP [id number]) OP-PT Subjective Patient Comments Patient Comments Pt reports doing little bit of exercises daily, started incorporating pilates. PT-OP-D Balance Start: 11/18/21 18:11 Freq: Status: Active Protocol: Document 11/21/21 08:59 LRN (Rec: 11/21/21 09:56 LRN [id number]) OP-PT Balance Assessment Sitting Balance Static Sitting Balance Ability Normal Dynamic Sitting Balance Ability Normal Standing Balance Static Standing Balance Ability Normal Dynamic Standing Balance Ability Normal Heath Fall Scale Copyright Permission PT-OP-G Mobility & Gait Start: 11/18/21 18:11 Freq: Status: Active Protocol: Document 11/21/21 08:59 LRN (Rec: 11/21/21 09:56 LRN [id number]) OP Gait Assessment Comments Gait Comments Normal PT-OP-J Posture/Palpation/Skin Start: 11/18/21 18:11 Freq: Status: Active Protocol: Document 11/21/21 08:59 LRN (Rec: 11/21/21 09:56 LRN [id number]) Posture Evaluation Position Standing Head/C-Spine Posture Side Bent Left,Forward Head T-Spine Posture Increased Kyphosis L-Spine Posture Increased Lordosis Shoulder Posture (R) Elevated Hip Posture (L) Externally Rotated,(R) Externally Rotated Palpation Assessment Location Shoulder Palpation Location Intrascapular muscles Palpation Findings Soft Tissue Tightness,Muscle Guarding,Tenderness Palpation Details Upwardly rotated R scapula Ms tension of intrascapular muscles and weakness of the L intrascapular muscles. Neck Palpation Location R Upper trapezious Palpation Findings Soft Tissue Tightness, Tenderness Palpation Details R UT tight, but head tilted left L suboccipital region tight. PT-OP-K Range of Motion Start: 11/18/21 18:11 Freq: Status: Active Protocol: Document 11/21/21 08:59 LRN (Rec: 11/21/21 09:56 LRN [id number]) Cervical Spine Range of Motion Cervical Spine Active Degrees Testing Position Sitting Flexion 48 Extension 45 Rotation Left 30 Rotation Right 63 Lateral Flexion Left 30 Lateral Flexion Right 35 ROM Limitations Soft Tissue Tightness,Pain Comments Use of bubble inclinometer. Pt reports soreness vs pain restricting movement. L rot limited by L UT & L Scalene tightness R rot tightness at LO intrascapular ms Shoulder Goniometric Range of Motion Shoulder Right Passive Shoulder ROM WFL Yes Testing Position Sitting Flexion 180 Abduction 177 External Rotation at 0 degrees Abduction 85 Internal Rotation Behind Back (text) T6 Comments IR limited due to R wrist pain . Left Active Shoulder ROM WFL Yes Testing Position Sitting Flexion 180 External Rotation at 0 degrees Abduction 85 Internal Rotation Behind Back (text) T5 PT-OP-L Special Tests Start: 11/18/21 18:11 Freq: Status: Active Protocol: Document 11/21/21 08:59 LRN (Rec: 11/21/21 09:56 LRN [id number]) Special Tests Cervical Spine Special Tests Upper Limb Tension Test Test Results negative Vertebral Artery Test Results Neg bilaterally Comments Causes sharp pain R neck with R rot; tension of ms with L rot Spurling's Test Test Results + left Comments pain on left neck testing L SB , pressure on left with testing R SB. Traction Test Results Positive Comments decrease soreness Foraminal Compression Test Results negative Comments decrease soreness PT-OP-M Strength Start: 11/23/21 09:08 Freq: Status: Active Protocol: Document 11/21/21 08:59 LRN (Rec: 11/23/21 09:10 LRN [id number]) Cervical Spine Strength Cervical Spine Manual Muscle Testing Testing Position Sitting Rotation Right 4 Good Comments Generally 5/5 except as noted above. Shoulder Strength Shoulder Manual Muscle Testing Right Comments Generally 5/5 Left Comments Generally 5/5 PT-OP-Q Treatments Start: 11/18/21 18:11 Freq: Status: Active Protocol: Document 12/05/21 12:15 SP (Rec: 12/05/21 13:07 SP [id number]) Therapeutic Exercises Supine Exercises Horiz AB/AD arms Supine Exercise Name Horiz AB/AD Ts Side bilateral Resistance AROM> #3 vs 3# DB Equipment Used table vs over foam roller Reps/Minutes 2x15 Comments Extra time to for slow and controlled motions with cuing given. Alternating arm lifts Supine Exercise Name Alternating arm lifts over head Side bilateral Resistance AROM>TB #1>#3 vs 3# DB Equipment Used table and foam roller Reps/Minutes 2x15 reps Comments good feedback response feel the muscles working now Neck Elongation Supine Exercise Name Turtle stretch Reps/Minutes 5 Sitting Exercises Scapular Squeeze Sitting Exercise Name scapula squeeze with arm outward rotation Resistance TB Lvl 1> band #3 Reps/Minutes 1 x 10 ea Comments Pt struggled w/rhomboid recruitment - improved post shoulder roll/chin tuck Levator Scap. Stretch Sitting Exercise Name REviewed HEP Side bilateral Reps/Minutes 2 x 30 Comments seated/standing Upper Trapezius Stretch Sitting Exercise Name Added to HEP - HO declined Side bilateral Reps/Minutes 2 x 30 Comments steated standing C. Isometrics Sitting Exercise Name Vonnie c. flex, ext, SB. Reps/Minutes 10SH x 5 each, alternating side to side Comments good form. C. AROM Sitting Exercise Name C. AROM stretch: rotation, forward, backward Side bilateral Reps/Minutes good review x10 reps Standing Exercises self STMs Standing Exercise Name posterior scapula- added to HEP Side bilateral Equipment Used racquetball roll on wall, posterior neck w/ theracane MWM nod/turn Reps/Minutes 1 min Comments good feedback response wall posture Standing Exercise Name added to HEP Resistance back to wall Reps/Minutes 5 reps x5s hold Comments buttocks, roll up back, head on wall, arm side Manual Therapy Treatment Soft Tissue Mobilization NEck Body Location Posterior neck, L anterior scalenes, Levator Scap, Upper Trap Mobilization Type Cross-Friction,Strumming, Sustained Pressure Intensity/Depth Moderate Body Position Supine Self-Care/Home Management Treatment Education Patient Education Body Mechanics,Home Exercise Program,Posture Other Education Initiated #3 TB vs 3# DB to UE HEP good feedback, self STMs with ball wall/ theracane. 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 When get home self HEP to counteract forward posture with job. PT-OP-T Assessment and Plan Start: 11/18/21 18:11 Freq: Status: Active Protocol: Document 12/05/21 12:15 SP (Rec: 12/05/21 13:07 SP [id number]) Physical Therapy Assessment Goals Three Impairment Decreased function due to pain Short Term Goal (STG) Pt will be educated in proper body mechanics and intermittent neck stretches during strenuous activities. 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 LTG Duration 12/20/21 One Impairment Lacks appropriate self care HEP Short Term Goal (STG) Pt educated in self care use of modalities for pain relief (MH/Cryotherapy) STG Duration 11/29/09 Penitentiary Goal (LTG) Pt independent with a self care HEP for the neck/ shoulders. (11/28/21: HEP: C. vonnie for flex, ext, SB) 12/05/21: added resisted alternating BUE FF, BUE HABD, stretching, self STMs ball wall, scap retraction w/shld ER. LTG Duration 02/19/22 progressing 12/05/21 Assessment Summary Assessment Pt improved with added resistance to HEP DB vs TB and incorporation over foam roller end tx if wishes to get for home, good scap stabilization effort. Added wall posture roll ups for postural awareness and shld ER AROM for LT recruitment. Pt responded well to manual and instruction self STMs use of ball wall and theracane MWM. Provided HOs of printed ex from chart, didn't want created images. Pt reported more mobility in scap complex end tx and decreased tension in neck. Physical Therapy Plan Frequency and Duration Frequency of Treatment 2x/Week Plan of Care Start Date 11/21/21 Plan of Care End Date 02/19/22 Therapeutic Interventions Therapeutic Interventions Home Exercise Program,Joint Mobilizations,Manual Therapy, Neuromuscular Re-education, Patient/Caregiver Education, Self-Care/Home Management,Soft Tissue Mobilization,Taping, Therapeutic Activities, Therapeutic Exercises Modalities Cold Pack/Ice Massage,Electric Stimulation,Hot Packs, Ultrasound Next Visit Focus/Plan Next Note Type Treatment Note Next Visit Plan Recheck resistance over foam roller FF/ ABD, response self STMs. POC: Progress C. stab strengthening. Improve C/S joint mobility with movement. Educate pt in self care use of modalities (STG#1) & proper body mechanics (STG#3) w/ Cervical shoulder ex (stretch, active ROM) during strenuous activities at work. HEP: Cervical & scapular stabilization, core strengthening. Manual: STM UT, C/S, JMT C/S & C. ROM with MH POC: Pt choosing to focus on self care HEP. P to be independent with initial neck/ shoulder ROM and strengthening 2x/1 wk, then follow up visits 1x/week until goals met .
--- NOTE | 2021-12-12 14:30 | PT.OTN ---
Current Diagnoses Cervicalgia (12/12/21) Other specified disorders of bone, shoulder (12/12/21) Dizziness and giddiness (12/12/21) Physical Therapy Treatment Note PT-OP-A Visit Information Start: 11/18/21 18:11 Freq: Status: Active Protocol: Document 12/12/21 13:45 SAK (Rec: 12/12/21 14:30 SAK [id number]) Out-Patient Physical Therapy Visit Information Visit Information Visit Type Treatment Note Visit Note , $50 copay Visit Start Time 13:46 Total Visit Minutes 55 Visit Number 5 Number of STEAM PLANT OPERATOR Visits 0 Evaluation Information Evaluation Date 11/21/21 PT-OP-B Current Condition Start: 11/18/21 18:11 Freq: Status: Active Protocol: Document 11/21/21 08:59 LRN (Rec: 11/21/21 09:56 LRN [id number]) Current Condition History of Current Condition Onset Date Current Complaints Neck and shoulder discomfort. History of Current Condition Pt states she was referred for neck/shoulder pain that started after attending a concert in [place], but had slight neck pain previously. She currently has tightness behind the head and soreness in the neck and upper shoulders. She has had wrist tendonitis therapy ([facility] in [place], ~02/12-06/15) previously, but she has ex's for that. Had went to a [employer] concert and was bashing her head around so for the first day or two when she stood up she would get dizzy and lightheaded, but that has cleared up. Neck/shoulder pain is essentially gone, just sore. Prior Treatments and Tests Medications for nighttime med for ms spasms and pain reliever. PT reports X-ray taken at , results unknown. X-rays reveal no acute findings or degenerative changes. Future Testing and Treatments Planned None Treatment Goals Patient/Caregiver Goals Pt goal is to get assessment self care program. Pain 1/10 in 4 weeks the night and morning after a strenuous day at work. Able to bend over and clean at work or weed whack carrying device at previous level of function. 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 Baseline Function- Other Currently can take care of self, but for first 1-2 days after the concert needed help with daily activities. Slight neck pain Current Functional Impairments (Reported) Functional Limitations- ADL's A lot lifting or bending. Functional Limitations- Work/School Back at work. Doing a lot of lifting or bending causes her more soreness, but not excruciating pain. 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 Therapy/Recovery PT-OP-C Subjective Start: 11/18/21 18:11 Freq: Status: Active Protocol: Document 12/12/21 13:45 SAK (Rec: 12/12/21 14:30 SAK [id number]) OP-PT Subjective Patient Comments Patient Comments No pain, requests discharge from PT. Compliant to HEP, postural correction and modfication of work tasks. PT-OP-D Balance Start: 11/18/21 18:11 Freq: Status: Active Protocol: Document 11/21/21 08:59 LRN (Rec: 11/21/21 09:56 LRN [id number]) OP-PT Balance Assessment Sitting Balance Static Sitting Balance Ability Normal Dynamic Sitting Balance Ability Normal Standing Balance Static Standing Balance Ability Normal Dynamic Standing Balance Ability Normal Heath Fall Scale Copyright Permission PT-OP-G Mobility & Gait Start: 11/18/21 18:11 Freq: Status: Active Protocol: Document 11/21/21 08:59 LRN (Rec: 11/21/21 09:56 LRN [id number]) OP Gait Assessment Comments Gait Comments Normal PT-OP-J Posture/Palpation/Skin Start: 11/18/21 18:11 Freq: Status: Active Protocol: Document 11/21/21 08:59 LRN (Rec: 11/21/21 09:56 LRN [id number]) Posture Evaluation Position Standing Head/C-Spine Posture Side Bent Left,Forward Head T-Spine Posture Increased Kyphosis L-Spine Posture Increased Lordosis Shoulder Posture (R) Elevated Hip Posture (L) Externally Rotated,(R) Externally Rotated Palpation Assessment Location Shoulder Palpation Location Intrascapular muscles Palpation Findings Soft Tissue Tightness,Muscle Guarding,Tenderness Palpation Details Upwardly rotated R scapula Ms tension of intrascapular muscles and weakness of the L intrascapular muscles. Neck Palpation Location R Upper trapezious Palpation Findings Soft Tissue Tightness, Tenderness Palpation Details R UT tight, but head tilted left L suboccipital region tight. PT-OP-K Range of Motion Start: 11/18/21 18:11 Freq: Status: Active Protocol: Document 11/21/21 08:59 LRN (Rec: 11/21/21 09:56 LRN [id number]) Cervical Spine Range of Motion Cervical Spine Active Degrees Testing Position Sitting Flexion 48 Extension 45 Rotation Left 30 Rotation Right 63 Lateral Flexion Left 30 Lateral Flexion Right 35 ROM Limitations Soft Tissue Tightness,Pain Comments Use of bubble inclinometer. Pt reports soreness vs pain restricting movement. L rot limited by L UT & L Scalene tightness R rot tightness at LO intrascapular ms Shoulder Goniometric Range of Motion Shoulder Right Passive Shoulder ROM WFL Yes Testing Position Sitting Flexion 180 Abduction 177 External Rotation at 0 degrees Abduction 85 Internal Rotation Behind Back (text) T6 Comments IR limited due to R wrist pain . Left Active Shoulder ROM WFL Yes Testing Position Sitting Flexion 180 External Rotation at 0 degrees Abduction 85 Internal Rotation Behind Back (text) T5 PT-OP-L Special Tests Start: 11/18/21 18:11 Freq: Status: Active Protocol: Document 11/21/21 08:59 LRN (Rec: 11/21/21 09:56 LRN [id number]) Special Tests Cervical Spine Special Tests Upper Limb Tension Test Test Results negative Vertebral Artery Test Results Neg bilaterally Comments Causes sharp pain R neck with R rot; tension of ms with L rot Spurling's Test Test Results + left Comments pain on left neck testing L SB , pressure on left with testing R SB. Traction Test Results Positive Comments decrease soreness Foraminal Compression Test Results negative Comments decrease soreness PT-OP-M Strength Start: 11/23/21 09:08 Freq: Status: Active Protocol: Document 11/21/21 08:59 LRN (Rec: 11/23/21 09:10 LRN [id number]) Cervical Spine Strength Cervical Spine Manual Muscle Testing Testing Position Sitting Rotation Right 4 Good Comments Generally 5/5 except as noted above. Shoulder Strength Shoulder Manual Muscle Testing Right Comments Generally 5/5 Left Comments Generally 5/5 PT-OP-Q Treatments Start: 11/18/21 18:11 Freq: Status: Active Protocol: Document 12/12/21 13:45 SAK (Rec: 12/12/21 14:30 SAK [id number]) Therapeutic Exercises Supine Exercises Horiz AB/AD arms Supine Exercise Name Horiz AB/AD Ts Side bilateral Resistance AROM> #3 vs 3# DB Equipment Used table vs over foam roller Reps/Minutes 2x15 Comments Extra time to for slow and controlled motions with cuing given. Alternating arm lifts Supine Exercise Name Alternating arm lifts over head Side bilateral Resistance AROM>TB #1>#3 vs 3# DB Equipment Used table and foam roller Reps/Minutes 2x15 reps Comments good feedback response feel the muscles working now Sitting Exercises Scapular Squeeze Sitting Exercise Name scapula squeeze with arm outward rotation Resistance TB Lvl 1> band #3 Reps/Minutes 1 x 10 ea Comments Pt struggled w/rhomboid recruitment - improved post shoulder roll/chin tuck Levator Scap. Stretch Sitting Exercise Name REviewed HEP Side bilateral Reps/Minutes 2 x 30 Comments seated/standing Upper Trapezius Stretch Sitting Exercise Name Added to HEP - HO declined Side bilateral Reps/Minutes 2 x 30 Comments steated standing C. Isometrics Sitting Exercise Name Vonnie c. flex, ext, SB. Reps/Minutes 10SH x 5 each, alternating side to side Comments good form. Shoulder rolls Sitting Exercise Name Shoulder rolls with emphasis on shoulder depression and forward roll. Side bilateral Reps/Minutes 2' C. AROM Sitting Exercise Name C. AROM stretch: rotation, forward, backward Side bilateral Reps/Minutes good review x10 reps Standing Exercises wall posture Standing Exercise Name added to HEP Resistance back to wall Reps/Minutes 5 reps x5s hold Comments buttocks, roll up back, head on wall, arm side Manual Therapy Treatment Soft Tissue Mobilization NEck Body Location Posterior neck, L anterior scalenes, Levator Scap, Upper Trap Mobilization Type Cross-Friction,Strumming, Sustained Pressure Intensity/Depth Moderate Body Position Supine Self-Care/Home Management Treatment Education Patient Education Body Mechanics,Home Exercise Program,Posture PT-OP-T Assessment and Plan Start: 11/18/21 18:11 Freq: Status: Active Protocol: Document 12/12/21 13:45 [facility] (Rec: 12/12/21 14:30 [facility] [id number]) Physical Therapy Assessment Goals Three Impairment Decreased function due to pain Short Term Goal (STG) Pt will be educated in proper body mechanics and intermittent neck stretches during strenuous activities. 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 12/12/21: goal met LTG Duration met Two Impairment Neck/mariann shoulder pain rated 3 -4/10 Short Term Goal (STG) Decrease pain to 2/10 STG Duration 01/17/22 [facility] Goal (LTG) Pain 1/10 in the night and morning after a strenuous day at work. 12/12/21: goal achieved LTG Duration met One Impairment Lacks appropriate self care HEP Short Term Goal (STG) Pt educated in self care use of modalities for pain relief (MH/Cryotherapy) STG Duration 11/29/09 [facility] Goal (LTG) Pt independent with a self care HEP for the neck/ shoulders. (11/28/21: HEP: C. vonnie for flex, ext, SB) 12/05/21: added resisted alternating BUE FF, BUE HABD, stretching, self STMs ball wall, scap retraction w/shld ER. : goal achieved LTG Duration met Assessment Summary Assessment PT goals achieved, she requests discharge today. No further PT need identified. Physical Therapy Plan Discharge Physical Therapy Discharge Reasons Goals Met Discharge Comments patient request for discharge today, feeling good.
== END 2022-02-27 12:40 | disposition home or self-care (01) ==
LOC: PHYS 13:45
PROVIDERS: Family Provider Registered Nurse Diabetes Educator; PCP Registered Nurse Diabetes Educator; Referring Provider Nurse Practitioner; Visit Provider Nurse Practitioner
DX: M54.2 Cervicalgia (principal); M89.8X1 Other specified disorders of bone, shoulder; R42 Dizziness and giddiness
CPT/HCPCS: 97110; 97140; 97161; 97535

== ENCOUNTER → 2023-06-08 12:22 | Outpatient (CLI) | payer OTHER, SELFPAY ==
[2023-06-08 13:44] LABS: Alanine Aminotransferase 15 IU/L (<35); Albumin 4.1 g/dL (3.5-5.0); Albumin Globulin Ratio 1.4 (1.0-2.8); Alkaline Phosphatase 68 U/L (38-126); Aspartate Aminotransferase 32 IU/L (14-36); BUN Creatinine Ratio 12.2 (6-22); Bilirubin Total 0.5 mg/dL (0.2-1.3); Blood Urea Nitrogen 10 mg/dL (7-17); Calcium 8.7 mg/dL (8.4-10.2); Carbon Dioxide 24 mmol/L (22-32); Chloride 104 mmol/L (98-107); Estimated Glomerular Filt Rate > 60 mL/min (>60); Globulin 2.9 g/dL (1.7-4.1); Glucose 88 mg/dL (70-100); HEMOLYSIS < 15 (0-50); Potassium 4.2 mmol/L (3.4-5.1); Sodium 135 mmol/L (137-145)
== END ==
LOC: LAB 12:23
PROVIDERS: Family Provider Registered Nurse Diabetes Educator; PCP Registered Nurse Diabetes Educator; Referring Provider Nurse Practitioner; Visit Provider Nurse Practitioner
DX: B35.3 Tinea pedis (principal)
CPT/HCPCS: 36415; 80053

== ENCOUNTER → 2023-09-30 12:29 | Outpatient (CLI) | payer OTHER, SELFPAY ==
[2023-09-30 13:26] LABS: Alanine Aminotransferase 18 IU/L (<35); Albumin 4.5 g/dL (3.5-5.0); Albumin Globulin Ratio 1.6 (1.0-2.8); Alkaline Phosphatase 70 U/L (38-126); Aspartate Aminotransferase 23 IU/L (14-36); Bilirubin Total 0.4 mg/dL (0.2-1.3); Bilirubin Unconjugated 0.3 mg/dL (0.0-1.1); Globulin 2.8 g/dL (1.7-4.1); HEMOLYSIS < 15 (0-50); Total Protein 7.3 g/dL (6.3-8.2)
== END ==
PROVIDERS: Family Provider Registered Nurse Diabetes Educator; PCP Registered Nurse Diabetes Educator; Referring Provider Registered Nurse Diabetes Educator; Visit Provider Registered Nurse Diabetes Educator
DX: B35.1 Tinea unguium (principal)
CPT/HCPCS: 36415; 80076

== ENCOUNTER → 2024-01-05 09:38 | Outpatient (CLI) | payer OTHER, SELFPAY ==
[2024-01-05 10:32] LABS: Hematocrit 41.9 % (36-46); Hemoglobin 14.1 g/dL (12.0-16.0); Mean Corpuscular HGB Conc 33.6 % (30-36); Mean Corpuscular Volume 89.3 fL (80-100); Platelet Count 308 X10^3/uL (150-400); Red Blood Cell Count 4.69 X10^6/uL (4.0-5.2); Red Cell Distribution Width 13.2 % (11.6-14.8); White Blood Cell Count 6.6 X10^3/uL (4.5-11.0)
[2024-01-05 10:59] LABS: BUN Creatinine Ratio 12.1 (6-22); Blood Urea Nitrogen 11 mg/dL (7-17); Calcium 8.7 mg/dL (8.4-10.2); Carbon Dioxide 25 mmol/L (22-32); Chloride 108 mmol/L (98-107); Cholesterol 207 mg/dL (140-199); Estimated Glomerular Filt Rate > 60 mL/min (>60); Glucose 88 mg/dL (70-100); HDL Cholesterol 59 mg/dL (40-60); HEMOLYSIS < 15 (0-50); LDL Cholesterol Calculated 133 mg/dL (<100); Potassium 4.3 mmol/L (3.4-5.1); Sodium 137 mmol/L (137-145); Triglycerides 74 mg/dL (35-150)
[2024-01-05 11:37] LABS: TSH w/ Reflex to FT4 1.46 uIU/mL (0.47-4.68)
[2024-01-05 13:43] LABS: Alanine Aminotransferase 15 IU/L (<35); Albumin 4.4 g/dL (3.5-5.0); Albumin Globulin Ratio 1.8 (1.0-2.8); Alkaline Phosphatase 74 U/L (38-126); Aspartate Aminotransferase 23 IU/L (14-36); Bilirubin Total 0.5 mg/dL (0.2-1.3); Globulin 2.4 g/dL (1.7-4.1); HEMOLYSIS < 15 (0-50); Total Protein 6.8 g/dL (6.3-8.2)
== END ==
PROVIDERS: Family Provider Registered Nurse Diabetes Educator; PCP Registered Nurse Diabetes Educator; Referring Provider Registered Nurse Diabetes Educator; Visit Provider Registered Nurse Diabetes Educator
DX: Z00.00 Encounter for general adult medical examination without abnormal findings (principal); B35.1 Tinea unguium
CPT/HCPCS: 36415; 80048; 80061; 80076; 84443; 85027

== ENCOUNTER → 2024-02-26 12:09 | Outpatient (CLI) | payer OTHER, SELFPAY | PROVIDERS: Family Provider Registered Nurse Diabetes Educator; PCP Registered Nurse Diabetes Educator; Visit Provider Nurse Practitioner Family | DX: R30.0 Dysuria (principal) | CPT/HCPCS: 87086 ==

== ENCOUNTER 2024-06-03 15:48 | Emergency (ER) | payer OTHER, SELFPAY ==
[2024-06-03 16:16] VITALS: BP 128/65; PULSE 82; RESP 16; TEMP 37.6; O2SAT 98; BMI 26.6
[2024-06-03 17:46] LABS: Amorphous Sediment Urine 1+; Bacteria Urine Few (2-10); Culture Indicated Urine Cult Not Indicated; RBC Urine 0-1/HPF (0-5/HPF); Squamous Epithelial Cell Urine 0-1 /HPF (0-5/HPF); Urine Volume 10mL (spun); WBC Urine None Seen (0-5/HPF)
[2024-06-03 18:39] VITALS: BP 113/76; PULSE 70; RESP 12; O2SAT 99
--- NOTE | 2024-06-03 18:57 | ED.HA ---
HPI - Headache General Chief Complaint: Headache Stated Complaint: [facility]; Severe Headache, Pain down Spine into Legs Time Seen by Provider: 06/03/24 18:45 Source: patient Mode of arrival: Family Vehicle Limitations: no limitations History of Present Illness HPI Narrative: Patient was a 38-year-old female who is here for evaluation of the headache. States that her headache started yesterday afternoon. It was not sudden onset. Yesterday evening it reached its maximum intensity. She took some ibuprofen which did seem to help her symptoms somewhat. She was able to sleep last night. Woke up this morning. States her headache is much better but not completely gone. Throughout the day today she was had intermittent headaches. She did take some Excedrin as well. She states that when the pain comes in his when she was standing or walking in it radiates down her back into her legs. No fevers. No vomiting. No trauma. Not on anticoagulation. No neck pain. Describes the pain as on the top of her head. Related Data Previous Rx's Medication Instructions Recorded [id number] 1 cap PO Q4-6H PRN pain #12 caps 06/03/24 50 mg-300 mg-40 mg capsule (Fioricet) Allergies Allergy/AdvReac Type Severity Reaction Status Date / Time No Known Drug Allergies Allergy Unverified 02/26/24 12:19 Review of Systems Review of Systems Narrative: See HPI Patient History Medical History Dyslipidemia Tinea pedis Tinnitus Tendonitis (~2020) Abnormal Pap smear of cervix (~2018) Genital HSV (~2017) Surgical History Anesthesia Lipoma of back (~06/04/18) Family History Grandfather History of heart disease Grandmother History of heart disease Grandfather Cancer Grandmother Leukemia Glaucoma Cancer Hypertension Social History Smoking Status: Former smoker Smoking Status: Former smoker Exam Initial Vital Signs Initial Vital Signs: Vital Signs Temperature 99.6 F 06/03/24 16:16 Pulse Rate 82 06/03/24 16:16 Respiratory Rate 16 06/03/24 16:16 Blood Pressure 128/65 06/03/24 16:16 Pulse Oximetry 98 06/03/24 16:16 Oxygen Delivery Method Room Air 06/03/24 16:16 Const General: cooperative, comfortable and No ill appearing HENMT Head: normal to inspection and normocephalic Resp Effort & Inspection: normal respiratory effort Auscultation: clear to auscultation bilaterally Cardio Rate: regular rate Rhythm: regular rhythm GI Inspection: normal to inspection Skin General: no rashes or lesions noted Neuro General: patient alert, patient awake, patient oriented x3 and moves all extremities Cranial Nerves: CN's II-XI intact bilaterally Speech: speech normal Gait: normal gait Motor: muscle tone normal throughout Sensory Exam: no sensory deficits noted Extrem General: normal to inspection and capillary refill normal Course Orders Ordered: ED Orders 06/03/24 17:20 Urine Microscopic Stat 06/03/24 18:57 CT head/brain wo con Stat Discontinued Medications Acetaminophen (Acetaminophen 325 Mg Tablet) 650 mg PO NOW ONE Stop: 06/03/24 18:58 Last Admin: 06/03/24 19:09 Dose: 650 mg Documented By: JAMES Vital Signs Vital signs: Vital Signs - 8 hr 06/03/24 18:39 06/03/24 20:02 Pulse Rate 70 79 Respiratory Rate 12 14 Blood Pressure 113/76 109/68 Pulse Oximetry 99 97 Oxygen Delivery Method Room Air Room Air MDM - Headache Lab Data Attestation: I reviewed the patient's lab results. Labs: Lab Results 06/03/24 Range/Units 17:20 Urine RBC 0-1/hpf (0-5/HPF) Urine WBC None seen (0-5/HPF) Ur Squamous Epith Cells 0-1 /hpf (0-5/HPF) Amorphous Sediment 1+ Urine Bacteria Few (2-10) H (None) Ur Culture Indicated? Cult not indicated Vol Urine Centrifuged 10ml (spun) Point of Care Testing Test Results Negative Urine Dip Bedside Urine Glucose Negative Bedside Urine Bilirubin - Negative Bedside Urine Ketone + 15 Urine Specific [place] 1.015 Bedside Urine Occult Blood +/- Bedside Urine pH 6.5 Bedside Urine Protein - Negative Bedside Urine Urobilinogen - Negative Bedside Urine Nitrite - Negative Bedside Urine Leukocytes - Negative Esterase Imaging Data CT scan - head: Radiologist's Impression: PROCEDURE: CT HEAD/BRAIN WO CON INDICATIONS: Severe headache TECHNIQUE: Noncontrast 4.5 mm thick angled axial sections acquired from the foramen magnum to the vertex, with coronal and sagittal reformats. For radiation dose reduction, the following was used: automated exposure control, adjustment of mA and/or kV according to patient size. COMPARISON: None. FINDINGS: Image quality: Diagnostic. CSF spaces: Basal cisterns are patent. No extra-axial fluid collections. Ventricles are normal in size and shape. Brain: No midline shift. No intracranial masses or hemorrhage. Hernandez-white matter interface is normal. Skull and face: Calvarium and visualized facial bones are intact, without suspicious lesions. Sinuses: Visualized sinuses and mastoids are clear. IMPRESSION: No acute intracranial pathology. MDM Narrative Medical decision making narrative: Workup here in the emergency department is unremarkable. No trauma. No anticoagulation. Low suspicion for CVA, TIA. Low suspicion for intracranial hemorrhage. Low suspicion for meningitis. Her symptoms are actually much improved from the onset yesterday. Will prescribe the patient Fioricet for symptom control. Recommended that she contact your primary doctor for follow-up. She was given return precautions. She expressed understanding and agreement. Discharge Plan Departure Patient Disposition: Home Clinical Impression: Headache Instructions: DI for Headache Activity Restrictions/Additional Instructions: I do recommend that you contact your primary care doctor for a follow-up. Take the medication as needed and as directed. Return to the emergency department for new or worsening symptoms. Prescriptions: New [id number] [Fioricet] 50-300-40 mg capsule 1 cap PO Q4-6H PRN (Reason: pain) Qty: 12 0RF Referrals: Luis Izaguirre ARNP [Primary Care Provider] - Stand Alone Forms: Patient Portal/API/Survey
[2024-06-03] MEDS: ACETAMINOPHEN 325 MG TABLET 650 MG PO (19:09)
[2024-06-03 20:02] VITALS: BP 109/68; PULSE 79; RESP 14; O2SAT 97
== END 2024-06-03 20:03 | disposition home or self-care (01) ==
PROVIDERS: Emergency Medicine; Emergency Provider Emergency Medicine; Family Provider Registered Nurse Diabetes Educator; PCP Registered Nurse Diabetes Educator
DX: R51.9 Headache, unspecified (principal)
CPT/HCPCS: 70450; 81003; 81015; 81025; 99283; 99284